=== PATIENT | male | born 2000 | race African-American/Black ===

== ENCOUNTER 2025-03-17 10:20 | Emergency (ER) | payer OTHER ==
[~2025-03-17] VITALS: Ht 175.3 cm; Wt 93.2 kg
[2025-03-17 12:10] LABS: VENOUS BASE EXCESS 0.3 (-2.0-2.0); VENOUS HCO3 27.4 MMOL/L (23.0-27.0); VENOUS O2 SATURATION 83.3 % (60.0-80.0); VENOUS PARTIAL PRESSURE CO2 54.2 mmHg (38.0-50.0); VENOUS PARTIAL PRESSURE O2 49.4 mmHg (30.0-50.0); VENOUS PH 7.321 UNITS (7.330-7.430); VENOUS STANDARD HCO3 24.5 MMOL/L; VENOUS TOTAL CO2 29.0 MMOL/L (24.0-28.0)
[2025-03-17] MEDS: KETOROLAC 30 MG/ML 1 ML VIAL IV ONE (12:12)
[2025-03-17 12:16] LABS: BASO # 0.1 10^3/uL (0.0-0.2); BASO % 0.8 % (0.0-1.0); EOS # 0.1 10^3/uL (0.0-0.5); EOS % 2.1 % (0.0-3.0); LYMPH # 2.6 10^3/uL (1.5-5.0); LYMPH % 41.8 % (24.0-44.0); MONO # 0.5 10^3/uL (0.0-0.8); MONO % 8.0 % (2.0-8.0); NEUTROPHILS # 2.9 10^3/uL (1.5-8.5); NEUTROPHILS % 47.1 % (36.0-66.0); PLATELET COUNT, AUTOMATED 204 10^3/uL (150-450)
[2025-03-17 12:24] LABS: APPEARANCE, URINE CLEAR (CLEAR); BACTERIA, URINE AUTO NEGATIVE (NEGATIVE); BILIRUBIN, URINE AUTO NEGATIVE (NEGATIVE); BLOOD, URINE BLOOD NEGATIVE (NEGATIVE); GLUCOSE, URINE (UA) AUTO NEGATIVE (NEGATIVE); KETONE, URINE AUTO NEGATIVE (NEGATIVE); LEUKOCYTE ESTERASE, URINE AUTO NEGATIVE (NEGATIVE); NITRITE, URINE AUTO NEGATIVE (NEGATIVE); PROTEIN, URINE AUTO NEGATIVE (NEGATIVE); RBC, URINE AUTO 2 /HPF (0-3); SPECIFIC GRAVITY URINE AUTO 1.024 (1.002-1.035); SQUAMOUS EPITHELIAL CELL UR AU 0 /HPF (0-6); UROBILINOGEN, URINE AUTO 0.2 mg/dL (0.0-2.0); WBC, URINE AUTO 13 /HPF (0-3)
[2025-03-17 12:45] LABS: ALT/SGPT 20 U/L (7.0-40); AST/SGOT 24 U/L (<34); CALCIUM LEVEL 9.2 MG/DL (8.5-10.1); CARBON DIOXIDE LEVEL 29 MMOL/L (20-31); CHLORIDE LEVEL 104 MMOL/L (98-107); CREATININE FOR GFR 0.93 MG/DL (0.70-1.30); GLOMERULAR FILTRATION RATE > 90.0 (>60); POTASSIUM SERUM 4.3 MMOL/L (3.5-5.1); SODIUM LEVEL 139 MMOL/L (136-145)
[2025-03-17 12:47] LABS: FREE T4 1.22 NG/DL (0.89-1.76)
[2025-03-17 13:06] LABS: AMPHETAMINES LEVEL URINE NEGATIVE (NEGATIVE); BARBITURATES URINE NEGATIVE (NEGATIVE); BENZODIAZEPINES URINE NEGATIVE (NEGATIVE); COCAINE METABOLITE URINE NEGATIVE (NEGATIVE); METHADONE URINE NEGATIVE (NEGATIVE); OPIATES URINE NEGATIVE (NEGATIVE)
[2025-03-17 13:07] LABS: CANNABINOIDS URINE NEGATIVE (NEGATIVE); PHENCYCLIDINE URINE NEGATIVE (NEGATIVE)
[2025-03-17 14:45] VITALS: BP 128/77; TEMP 98.2; O2SAT 98
== END 2025-03-17 14:51 | disposition home or self-care (01) ==
LOC: M ED 10:20
DX: R51.9 Headache, unspecified (principal); H52.10 Myopia, unspecified eye; R41.9 Unspecified symptoms and signs involving cognitive functions and awareness; F17.200 Nicotine dependence, unspecified, uncomplicated; F32.A Depression, unspecified
CPT/HCPCS: 70450; 80048; 80076; 80307; 81001; 82140; 82803; 84439; 84443; 85025; 96374; 99284; J1885

== ENCOUNTER 2025-04-15 10:22 | Inpatient (IN) | payer OTHER ==
[~2025-04-15] VITALS: Ht 175.3 cm; Wt 95.8 kg
[2025-04-15] MEDS: NICOTINE 14 MG/24 HR TRANSDERMAL TD SCH (09:00)
[2025-04-15 12:17] LABS: PLATELET COUNT, AUTOMATED 258 10^3/uL (150-450)
[2025-04-15 12:32] LABS: AMPHETAMINES LEVEL URINE NEGATIVE (NEGATIVE); BARBITURATES URINE NEGATIVE (NEGATIVE); BENZODIAZEPINES URINE NEGATIVE (NEGATIVE); CANNABINOIDS URINE NEGATIVE (NEGATIVE); COCAINE METABOLITE URINE NEGATIVE (NEGATIVE); METHADONE URINE NEGATIVE (NEGATIVE); OPIATES URINE NEGATIVE (NEGATIVE); PHENCYCLIDINE URINE NEGATIVE (NEGATIVE)
[2025-04-15] MEDS ORDERED: HOME MED LIST COMPLETE! XX SCH (13:10)
[2025-04-15 13:20] LABS: ETHYL ALCOHOL (ETHANOL) 0.003 % (0.000-0.010)
[2025-04-15 13:22] LABS: ALT/SGPT 15 U/L (7.0-40); AST/SGOT 24 U/L (<34); CALCIUM LEVEL 9.2 MG/DL (8.5-10.1); CARBON DIOXIDE LEVEL 26 MMOL/L (20-31); CHLORIDE LEVEL 106 MMOL/L (98-107); CREATININE FOR GFR 0.93 MG/DL (0.70-1.30); GLOMERULAR FILTRATION RATE > 90.0 (>60); POTASSIUM SERUM 4.0 MMOL/L (3.5-5.1); SALICYLATE LEVEL < 3.0 MG/DL (<30); SODIUM LEVEL 142 MMOL/L (136-145)
[2025-04-15] MEDS ORDERED: OLANZapine 5 MG TAB PO PRN (14:55)
[2025-04-15] MEDS ORDERED: ACETAMINOPHEN 325 MG TAB PO PRN (14:55)
[2025-04-15] MEDS ORDERED: MOM 30 ML SUSPENSION UDC PO PRN (14:55)
[2025-04-15] MEDS ORDERED: HALOPERIDOL 5 MG TAB PO PRN (14:55)
[2025-04-15] MEDS ORDERED: MAALOX 30 ML SUSP *UDC PO PRN (14:55)
[2025-04-15] MEDS ORDERED: traZODone 50 MG TAB PO PRN (14:55)
[2025-04-15] MEDS ORDERED: LORazepam 1 MG TAB PO PRN (14:55)
[2025-04-15] MEDS ORDERED: IBUPROFEN 400 MG TAB PO PRN (14:55)
[2025-04-15 15:26] VITALS: BP 123/85; TEMP 97.5; O2SAT 99
[2025-04-16 06:30] VITALS: BP 138/73; TEMP 97.7; O2SAT 100
[2025-04-16] MEDS: OLANZapine ORAL DISINTEGRATING TAB 5MG PO STA (10:07)
[2025-04-16 15:56] VITALS: BP 126/69; TEMP 97.8; O2SAT 100
[2025-04-16] MEDS: OLANZapine 5 MG TAB PO SCH (20:46)
[2025-04-17 06:31] VITALS: BP 106/61; TEMP 96.8; O2SAT 98
[2025-04-17] MEDS ORDERED: OLAN1TAB16 PO (08:58)
== END 2025-04-17 13:50 | disposition home or self-care (01) | DRG 885 ==
LOC: EDBD 10:22 → M ED 10:22 → M ED INP 14:52 → M PSY 15:18
PROVIDERS: ADMIT Internal Medicine; ATTEND Internal Medicine
DX: F39 Unspecified mood [affective] disorder (principal); R45.851 Suicidal ideations; F41.9 Anxiety disorder, unspecified; R51.9 Headache, unspecified

== ENCOUNTER 2025-04-28 11:06 | Inpatient (IN) | payer OTHER ==
[~2025-04-28] VITALS: Ht 175.3 cm; Wt 95.5 kg
[~2025-04-28 11:06] MED LIST: OLAN1TAB16 PO
[2025-04-28 11:53] LABS: PLATELET COUNT, AUTOMATED 235 10^3/uL (150-450)
[2025-04-28 12:19] LABS: AMPHETAMINES LEVEL URINE NEGATIVE (NEGATIVE)
[2025-04-28 12:20] LABS: BARBITURATES URINE NEGATIVE (NEGATIVE); BENZODIAZEPINES URINE NEGATIVE (NEGATIVE); CANNABINOIDS URINE NEGATIVE (NEGATIVE); COCAINE METABOLITE URINE NEGATIVE (NEGATIVE); METHADONE URINE NEGATIVE (NEGATIVE); OPIATES URINE NEGATIVE (NEGATIVE); PHENCYCLIDINE URINE NEGATIVE (NEGATIVE)
[2025-04-28 12:22] LABS: ETHYL ALCOHOL (ETHANOL) < 0.003 % (0.000-0.010)
[2025-04-28 12:23] LABS: SALICYLATE LEVEL < 3.0 MG/DL (<30)
[2025-04-28 12:24] LABS: ALT/SGPT 35 U/L (7.0-40); AST/SGOT 46 U/L (<34); CALCIUM LEVEL 10.1 MG/DL (8.5-10.1); CARBON DIOXIDE LEVEL 28 MMOL/L (20-31); CHLORIDE LEVEL 105 MMOL/L (98-107); CREATININE FOR GFR 1.02 MG/DL (0.70-1.30); GLOMERULAR FILTRATION RATE > 90.0 (>60); POTASSIUM SERUM 4.3 MMOL/L (3.5-5.1); SODIUM LEVEL 142 MMOL/L (136-145)
[2025-04-28] MEDS ORDERED: OLAN1TAB16 PO (13:04)
[2025-04-28] MEDS ORDERED: HOME MED LIST COMPLETE! XX SCH (13:05)
[2025-04-28] MEDS ORDERED: LORazepam 1 MG TAB PO PRN (16:40)
[2025-04-28] MEDS ORDERED: ACETAMINOPHEN 325 MG TAB PO PRN (16:40)
[2025-04-28] MEDS ORDERED: OLANZapine 5 MG TAB PO PRN (16:40)
[2025-04-28] MEDS ORDERED: MOM 30 ML SUSPENSION UDC PO PRN (16:40)
[2025-04-28] MEDS ORDERED: HALOPERIDOL 5 MG TAB PO PRN (16:40)
[2025-04-28] MEDS ORDERED: IBUPROFEN 400 MG TAB PO PRN (16:40)
[2025-04-28] MEDS ORDERED: MAALOX 30 ML SUSP *UDC PO PRN (16:40)
[2025-04-28 17:55] VITALS: BP 138/65; TEMP 98.1; O2SAT 100
[2025-04-28] MEDS: OLANZapine 5 MG TAB PO SCH (21:48)
[2025-04-29 06:59] VITALS: BP 108/63; TEMP 97.6; O2SAT 97
[2025-04-29] MEDS: NICOTINE 14 MG/24 HR TRANSDERMAL TD SCH (08:32)
[2025-04-29 15:23] VITALS: BP 119/82; TEMP 97; O2SAT 98
[2025-04-29] MEDS: traZODone 50 MG TAB PO PRN (21:06)
[2025-04-30 06:32] VITALS: BP 111/63; TEMP 97.6; O2SAT 99
[2025-05-01 06:48] VITALS: BP 134/69; TEMP 96.8; O2SAT 97
[2025-05-01] MEDS: FLUoxetine 20 MG CAP PO SCH (08:57)
[2025-05-01 14:47] VITALS: BP 156/82; TEMP 97.4; O2SAT 100
[2025-05-02 06:07] VITALS: BP 143/70; TEMP 98.2; O2SAT 100
[2025-05-02 15:57] VITALS: BP 148/81; TEMP 98.6; O2SAT 98
[2025-05-03 06:39] VITALS: BP 144/63; TEMP 97.6; O2SAT 97
[2025-05-03 15:53] VITALS: BP 141/72; TEMP 97.7; O2SAT 97
[2025-05-03] MEDS ORDERED: FLUO-365 PO (23:09)
[2025-05-03] MEDS ORDERED: TRAZ-252 PO (23:09)
[2025-05-03] MEDS ORDERED: OLAN1TAB16 PO (23:09)
[2025-05-04 06:34] VITALS: BP 105/59; TEMP 97.4; O2SAT 100
[2025-05-04] MEDS ORDERED: TRAZ-252 PO (10:02)
[2025-05-04] MEDS ORDERED: FLUO-365 PO (10:02)
[2025-05-04] MEDS ORDERED: OLAN1TAB16 PO (10:02)
== END 2025-05-04 10:56 | disposition home or self-care (01) | DRG 885 ==
LOC: M ED 11:06 → EDBD 11:06 → M ED INP 16:37 → M PSY 17:58
PROVIDERS: ADMIT Internal Medicine; ATTEND Internal Medicine
DX: F33.3 Major depressive disorder, recurrent, severe with psychotic symptoms (principal); R45.851 Suicidal ideations; F41.9 Anxiety disorder, unspecified; R51.9 Headache, unspecified; Z79.899 Other long term (current) drug therapy